=== PATIENT | female | born 1980 | race American Indian/Alaskan Native ===

== ENCOUNTER 2016-12-30 15:45 | Emergency (ER) | payer SELFPAY ==
[2016-12-30 16:35] VITALS: BP 156/97
[2016-12-30] MEDS ORDERED: ZOFRAN ODT PO ONE (17:09)
[2016-12-30 17:32] LABS: Basophils % (Auto) 0.7 % (0.0-1.8); Hematocrit 41.1 % (30.3-42.9); Hemoglobin 14.3 gm/dl (10.1-14.3); Mean Corpuscular HGB Conc 35 % (30-34); Mean Corpuscular Hemoglobin 33 pg (28-32); Mean Corpuscular Volume 96 fl (79-97); Platelet Count 271 K/mm3 (140-440); Red Blood Count 4.27 M/mm3 (3.65-5.03); Red Cell Distribution Width 13.7 % (13.2-15.2); White Blood Count 6.3 K/mm3 (4.5-11.0)
--- NOTE | 2016-12-30 17:47 | Emergency Department Report ---
Entered by JULIO CÉSAR DE SOUZA, acting as scribe for CORETTA HERNANDEZ PA. Chief Complaint: Abdominal Pain Stated Complaint: N/V/ABD PAIN Time Seen by Provider: 12/30/16 17:05 - HPI History of Present Illness: Patient c/o abdominal pain that began this morning. Reports N/V/D that began this morning. Notes her last meal was yesterday, which she ate [employer]. Reports diaphoresis and chills. Denies fever. Denies hematochezia and hematemesis LMP 12/26/2016 - ROS Review of Systems: All systems are negative unless stated in the HPI above. - Exam Vital Signs: Vital Signs 12/30/16 16:32 Temperature 97.4 F L Pulse Rate 60 Respiratory 22 Rate Blood Pressure 156/97 O2 Sat by Pulse 100 Oximetry Physical Exam: General: Patient is awake and alert. Patient is in moderate distress. Patient is actively vomiting in triage area. ABDOMEN: Soft, nondistended. Generalized abdominal tenderness. Normal bowel sounds present to all quadrants. No palpable masses noted. MSE screening note: Focused history and physical exam performed. Due to findings the following was ordered: see below ED Medical Decision Making - Medical Decision Making Patient screened by provider in triage area. She will be given Zofran in triage. Lab work will be ordered and sent in for patient. Patient sent to be seen by MD on main ED side. ED Disposition for MSE Condition: Stable Instructions: Abdominal Pain (ED) This documentation as recorded by the scribe,JULIO CÉSAR DE SOUZA,accurately reflects the service I personally performed and the decisions made by or,CORETTA HERNANDEZ PA.
[2016-12-30 17:52] LABS: Alanine Aminotransferase 16 units/L (7-56); Albumin 4.7 g/dL (3.9-5); Albumin/Globulin Ratio 1.6 %; Alkaline Phosphatase 72 units/L (35-129); Anion Gap 22 mmol/L; BUN/Creatinine Ratio 21.42; Blood Urea Nitrogen 15 mg/dL (7-17); Calcium 9.5 mg/dL (8.4-10.2); Carbon Dioxide 21 mmol/L (22-30); Chloride 104.8 mmol/L (98-107); Glucose 123 mg/dL (65-100); Lipase 13 units/L (13-60); Potassium 3.6 mmol/L (3.6-5.0); Sodium 144 mmol/L (137-145); Total Protein 7.7 g/dL (6.3-8.2)
--- NOTE | 2016-12-31 09:52 | ED Elopement Review ---
ED Pt Elopement review - Results review Lab results: Laboratory Tests 12/30/16 12/30/16 12/30/16 17:20 17:20 17:20 WBC 6.3 RBC 4.27 Hgb 14.3 Hct 41.1 MCV 96 MCH 33 H MCHC 35 H RDW 13.7 Plt Count 271 Lymph % (Auto) 11.9 [place] % (Auto) 5.1 Eos % (Auto) 0.0 Baso % (Auto) 0.7 Lymph # 0.8 [place] # 0.3 Eos # 0.0 Baso # 0.0 Seg Neutrophils % 82.3 H Seg Neutrophils # 5.2 Sodium 144 Potassium 3.6 Chloride 104.8 Carbon Dioxide 21 L Anion Gap 22 BUN 15 Creatinine 0.7 Estimated GFR > 60 BUN/Creatinine Ratio 21.42 Glucose 123 H Calcium 9.5 Total Bilirubin 0.70 AST 20 ALT 16 Alkaline Phosphatase 72 Total Protein 7.7 Albumin 4.7 Albumin/Globulin Ratio 1.6 Lipase 13 HCG, Qual Negative - Call Back decision Pt Call Back Decision: No action required
== END 2016-12-30 19:00 | disposition left against medical advice (07) ==
LOC: ED 15:45
DX: R10.9 Unspecified abdominal pain (principal); Z53.21 Procedure and treatment not carried out due to patient leaving prior to being seen by health care provider
CPT/HCPCS: 36415; 80053; 83690; 84703; 85025; Q0162